=== PATIENT | male | born 1935 | race Caucasian/White ===

== ENCOUNTER 2016-07-19 12:54 | Emergency (ER) | payer MEDICARE ==
[2016-07-19 13:15] VITALS: BP 124/83
--- NOTE | 2016-07-19 14:24 | EDM.PDOC ---
ED HPI GENERAL MEDICAL PROBLEM - General Chief Complaint: Neuro Symptoms/Deficits Stated Complaint: [facility]IA AMBULANCE Time Seen by Provider: 07/19/16 13:29 Source of Information: Reports: Patient, Family, Old Records, RN Notes Reviewed History Limitations: Reports: No Limitations - History of Present Illness INITIAL COMMENTS - FREE TEXT/NARRATIVE: 80-year-old gentleman presents emergency department day with complaint of an unawareness episode, he states he was driving his vehicle did not lose consciousness but was not aware of his surroundings episode lasted about 10 seconds he was able to pull the vehicle to the side of the road open the window had another episode brief moment again about 10 seconds and by this time all this since his head resolved to normal he has no complaints at this time. He does have a known history of diabetes mellitus type 2 which has been controlling on diet alone his last A1c was 7.8 in February, EMS reports that his blood sugar on scene was greater than 350 - Related Data Allergies Allergy/AdvReac Type Severity Reaction Status Date / Time No Known Allergies Allergy Verified 04/07/13 09:08 Home Meds: Home Meds Clopidogrel [Plavix] 75 mg PO DAILY 01/05/13 [History] Ibuprofen [Ibuprofen] 600 mg PO Q6H PRN 01/05/13 [History] Lisinopril [Lisinopril] 20 mg PO DAILY 01/05/13 [History] Omeprazole 20 mg PO DAILY 01/05/13 [History] Aspirin [Ranjit Chewable] 81 mg PO DAILY 03/29/13 [History] Metoprolol Tartrate [Lopressor] 25 mg PO BID 03/29/13 [History] atorvaSTATin [Lipitor] 80 mg PO DAILY 03/29/13 [History] Hydrochlorothiazide 25 mg PO DAILY 07/25/13 [History] amLODIPine [Norvasc] 5 mg PO DAILY 07/25/13 [History] Nitroglycerin 0.4 mg SL PRN 06/03/15 [History] Allopurinol [Zyloprim] 2 tab PO DAILY 07/19/16 [History] Past Medical History Cardiovascular History: Reports: High Cholesterol, Hypertension Neurological History: Reports: CVA Endocrine/Metabolic History: Reports: Diabetes, Type II - Past Surgical History Cardiovascular Surgical History: Reports: Coronary Artery Bypass GI Surgical History: Reports: Hernia Repair/Other Musculoskeletal Surgical History: Reports: Shoulder Surgery Social & Family History - Tobacco Use Smoking Status *Q: Never Smoker Second Hand Smoke Exposure: No - Alcohol Use Days Per Week of Alcohol Use: 2 Number of Drinks Per Day: 1 Total Drinks Per Week: 2 - Recreational Drug Use Recreational Drug Use: No ED ROS GENERAL - Review of Systems Review Of Systems: See Below Constitutional: Reports: Other (Unaware of surroundings) HEENT: Reports: No Symptoms Respiratory: Reports: No Symptoms Cardiovascular: Reports: No Symptoms GI/Abdominal: Reports: No Symptoms : Reports: No Symptoms Musculoskeletal: Reports: No Symptoms Skin: Reports: No Symptoms Neurological: Reports: No Symptoms ED EXAM, GENERAL - Physical Exam Exam: See Below Free Text/Narrative:: General: Male, not in any distress, alert and oriented x3 HEENT: head is atraumatic normocephalic, eyes pupils equal round reactive to light, sclera clear no conjunctivitis appreciated. Ears tympanic membranes clear and osuna landmarks and light reflex are present bilaterally canals are clear. Nose no septal deviation, nares are clear, no blood present. Mouth mucosa is moist and pink no erythema or exudate noted in soft palate, tongue is midline uvula is midline, dentition is intact. Neck: Supple no thyromegaly no tracheal deviation. Nodes: Cervical nodes subclavicular nodes nontender no palpable lymphadenopathy noted. Lungs: clear to auscultation bilaterally with symmetrical respirations, no adventitious noise appreciated. CV: Regular rate and rhythm S1 and S2 appreciated no murmurs rubs or gallops noted. Abdomen: Soft, nontender, no palpable masses or organomegaly appreciated, no distention no guarding bowel sounds are present . Neuro: Cranial nerves II through XII grossly intact Skin: Warm and dry, intact Extremities: No lower extremity edema appreciated, Course - Vital Signs Last Recorded V/S: Last Vital Signs Temp 98.4 F 07/19/16 13:14 Pulse 69 07/19/16 13:14 Resp 14 07/19/16 13:14 BP 124/83 07/19/16 13:14 Pulse Ox - Orders/Labs/Meds Orders: Active Orders 24 hr Category Date Time Status EKG Documentation Completion [RC] ASDIRECTED Care 07/19/16 14:13 Active GLUCOSE POC LAB TO COLLECT [POC] Stat Lab 07/19/16 15:48 Ordered GLYCOSYLATED HEMOGLOBIN,HGBA1C [CHEM] Stat Lab 07/19/16 14:24 Received UA W/MICROSCOPIC [URIN] Urgent Lab 07/19/16 14:12 Uncollected EKG 12 Lead [EK] Stat Ther 07/19/16 14:12 Ordered Labs: Laboratory Tests 07/19/16 07/19/16 Range/Units 14:24 14:24 WBC 7.2 (4.5-11.0) K/uL RBC 4.39 (4.30-5.90) M/uL Hgb 14.4 D (12.0-15.0) g/dL Hct 42.1 (40.0-54.0) % MCV 96 (80-98) fL MCH 33 H (27-31) pg MCHC 34 (32-36) % Plt Count 184 (150-400) K/uL Neut % (Auto) 57 (36-66) % Lymph % (Auto) 23 L (24-44) % Dade % (Auto) 14 H (2-6) % Eos % (Auto) 6 H (2-4) % Baso % (Auto) 1 (0-1) % Sodium 138 L (140-148) mmol/L Potassium 4.4 (3.6-5.2) mmol/L Chloride 102 (100-108) mmol/L Carbon Dioxide 26 (21-32) mmol/L Anion Gap 14.4 H (5.0-14.0) mmol/L BUN 29 H (7-18) mg/dL Creatinine 1.5 H (0.8-1.3) mg/dL Est Cr Clr Drug Dosing TNP Estimated GFR (MDRD) 45 L (>60) Glucose 402 H* (74-106) mg/dL Calcium 8.3 L (8.5-10.1) mg/dL Total Bilirubin 0.7 (0.2-1.0) mg/dL AST 28 (15-37) U/L ALT 17 (12-78) U/L Alkaline Phosphatase 411 H (46-116) U/L Total Protein 6.3 L (6.4-8.2) g/dL Albumin 3.1 L (3.4-5.0) g/dL Globulin 3.2 (2.3-3.5) g/dL Albumin/Globulin Ratio 1.0 L (1.2-2.2) Departure - Departure Time of Disposition: 15:53 Disposition: Home, Self-Care 01 Condition: good Clinical Impression: Diabetes mellitus type 2 with complications Qualifiers: Diabetes mellitus penitentiary insulin use: without penitentiary use Qualified Code(s ): E11.8 - Type 2 diabetes mellitus with unspecified complications - Discharge Information Forms: ED Department Discharge Additional Instructions: Start glipizide one tablet once a day, Please followup with your primary care provider in 5-10 days if not better, please call return to the emergency department with worsening of symptoms. - My Orders Last 24 Hours: My Active Orders 07/19/16 14:12 UA W/MICROSCOPIC [URIN] Urgent EKG 12 Lead [EK] Stat 07/19/16 14:13 EKG Documentation Completion [RC] ASDIRECTED 07/19/16 14:24 GLYCOSYLATED HEMOGLOBIN,HGBA1C [CHEM] Stat 07/19/16 15:48 GLUCOSE POC LAB TO COLLECT [POC] Stat - Assessment/Plan Last 24 Hours: My Active Orders 07/19/16 14:12 UA W/MICROSCOPIC [URIN] Urgent EKG 12 Lead [EK] Stat 07/19/16 14:13 EKG Documentation Completion [RC] ASDIRECTED 07/19/16 14:24 GLYCOSYLATED HEMOGLOBIN,HGBA1C [CHEM] Stat 07/19/16 15:48 GLUCOSE POC LAB TO COLLECT [POC] Stat Plan: Assessment Acuity = chronic Site and laterality = diabetes mellitus type 2 with hyperglycemic event Etiology = diabetes mellitus type 2 Manifestations = unawareness Location of injury = home Lab values = CBC unremarkable sodium low at 138 consistent hyponatremia creatinine elevated 1.5 consistent chronic renal failure stage GIII a glucose elevated at 405 consistent with severe hyperglycemia, this blood sugar was point of care ambulance picked him up. Albumin low at 2.1 consistent hypoalbuminemia EKG demonstrates a sinus rhythm with a first-degree block and a right bundle branch block Plan I did review options with him he is not interested in any injectable medications because of his elevation in his creatinine is not a candidate for metformin try glipizide however we'll use a decreased dosing because of his kidney function her followup with his primary care 3-5 days for evaluation, hemoglobin A1c is pending point care glucose prior to discharge was 232 Patient was in agreement with the plan all questions were answered, they were instructed to return to the emergency department or call for worsening symptoms. This note was dictated using [employer] voice recognition software please call with any questions.
[2016-07-20] MEDS ORDERED: glipiZIDE 5 MG Tab PO SCH (09:00)
== END 2016-07-19 16:16 | disposition home or self-care (01) ==
LOC: JP.ED 12:54
DX: E11.8 Type 2 diabetes mellitus with unspecified complications (principal); I10 Essential (primary) hypertension; E78.00 Pure hypercholesterolemia, unspecified; Z98.890 Other specified postprocedural states; Z79.82 Long term (current) use of aspirin; Z79.02 Long term (current) use of antithrombotics/antiplatelets; Z79.899 Other long term (current) drug therapy
CPT/HCPCS: 36415; 80053; 82962; 83036; 85025; 93005; 99284; A9270; 93010